=== PATIENT | male | born 1970 | race Caucasian/White ===

== ENCOUNTER → 2017-05-18 | Outpatient (CLI) | payer SELFPAY ==
[2017-05-18 17:31] LABS: BASOPHILS # (AUTO) 0.04 10*3/UL; BASOPHILS % (AUTO) 0.5 % (0-1); EOSINOPHILS # (AUTO) 0.09 10*3/UL; EOSINOPHILS % (AUTO) 1.1 % (0-8); HEMATOCRIT 45.6 % (42.0-52.0); HEMOGLOBIN 15.9 g/dL (14.0-18.0); LYMPHOCYTES # (AUTO) 2.43 10*3/uL; MEAN CORPUSCULAR HEMOGLOBIN 30.1 PG (27-31); MEAN CORPUSCULAR HGB CONC 34.9 g/dL (33-37); MEAN CORPUSCULAR VOLUME 86.2 FL (80-90); MEAN PLATELET VOLUME 10.7 FL (7.4-12.2); MONOCYTES # (AUTO) 0.78 10*3/UL (0.3-0.8); MONOCYTES % (AUTO) 9.9 % (5-15); NEUTROPHILS % (AUTO) 57.3 % (50-80); RED BLOOD COUNT 5.29 10^6/uL (4.70-6.10)
[2017-05-18 17:34] LABS: PLATELET MORPHOLOGY COMMENT NORMAL MORPHOLOGY (NORM); RBC MORPHOLOGY COMMENT NORMAL MORPHOLOGY (NORM); WBC MORPHOLOGY COMMENT NORMAL MORPHOLOGY (NORM)
[2017-05-18 17:40] LABS: BUN/CREATININE RATIO 13.84 (6-20); CALCIUM 9.2 mg/dL (8.7-10.7); SERUM ALBUMIN 4.6 g/dL (3.5-4.8)
== END ==
LOC: MOB LAB 17:02
PROVIDERS: ATTEND Physician Assistant
DX: R31.9 Hematuria, unspecified (principal); R30.0 Dysuria; I10 Essential (primary) hypertension
CPT/HCPCS: 36415; 80053; 85025; 87088